=== PATIENT | male | born 1975 | race Caucasian/White ===

== ENCOUNTER 2016-02-28 08:58 | Inpatient (IN) | payer MEDICAID ==
[~2016-02-28] VITALS: Ht 162.6 cm; Wt 58.2 kg
[2016-02-28 10:24] LABS: BASOPHILS 0.3 % (0.0-2.0); HEMATOCRIT 35.7 % (42.0-54.0); IMMATURE GRANULOCYTES 0.2 % (0-5); LYMPHOCYTES 20.9 % (15-50); MCH 30.8 pg (26.0-34.0); MCHC 33.6 g/dL (31.0-37.0); MCV 91.8 fL (80.0-100.0); MONOCYTES 5.4 % (2-11); NEUTROPHILS 72.2 % (40-80); RBC 3.89 10x6/uL (4.20-6.10); RDW 12.3 % (11.5-14.5); WBC 8.7 10x3/uL (4.8-10.8)
[2016-02-28 10:26] LABS: PLATELET COUNT 351 10x3/uL (130-400)
[2016-02-28 10:36] LABS: ALBUMIN 3.1 g/dL (3.4-5.0); ALKALINE PHOSPHATASE 167 U/L (46-116); CALCIUM 9.7 mg/dL (8.5-10.1); CARBON DIOXIDE 25.5 mmol/L (21.0-32.0); CHLORIDE - SERUM 95 mmol/L (98-107); CREATININE - SERUM 1.1 mg/dL (0.6-1.3); POTASSIUM - SERUM 4.5 mmol/L (3.5-5.1); PROTEIN - SERUM 8.5 g/dL (6.4-8.2); SODIUM 133 mmol/L (136-145); UREA NITROGEN 9 mg/dL (7-18); eGFR NON AFRICAN AMERICAN 78 mL/min (90-120)
[2016-02-28 10:39] LABS: CALC OSMOLALITY 294 mosm/kg (275-300)
[2016-02-28 10:41] LABS: GLUCOSE 631 mg/dL (74-106)
[2016-02-28 10:54] LABS: ALT (SGPT) 13 U/L (10-68)
--- NOTE | 2016-02-28 14:00 | NUR ---
RECEIVED PATIENT TO ROOM 2229VIA WC FROM ED. A/O X3. NO C/O AT THIS TIME. LUNGS ARE CLEAR BUT DIMINISHED IN UPPER LOBES, REPORTS OCCASSIONAL DRY COUGH. SKIN IS INTACT WITHOUT REDNESS BUT FOR 2 SMALL AREAS ON RIGHT FOOT GREAT TOE AREA THERE ARE A COUPLE OF SCALY LOOKING AREAS WHICH THE PATIENT REPORTS BEING ABOUT 2 YEARS OLD AND ALMOST HEALED. IV TO LEFT HAND PATENT WITHOUT REDNESS AT INSERTION SITE. LEVAQUIN INFUSING AT THIS TIME.
[2016-02-28 14:08] VITALS: BP 110/61
--- NOTE | 2016-02-28 14:33 | NUR ---
Patient Name: DEEPIKA BAZAN Admission Status: ER Accout number: [id number] Admission Date: 02-28-2016 : 1975 Admission Diagnosis: Attending: CEDRIC Current LOS: 1 Anticipated DC Date: 03-01-2016 Planned Disposition: Home Primary Insurance: [place] PRIVATE OPTIONS FABI[place]N Discharge Planning Comments: CM MET WITH PATIENT REGARDING D/C NEEDS AND PLANS. PATIENT STATED HE LIVES AT [facility] [address] HERE IN [place]. PATIENT STATES HE IS INDEPENDENT AND HAS NO DME. PATIENTS STATED HE DID NOT HAVE A PCP BUT TOLD THE BEAM WARPER (ROMEO) IT WAS DR. FRASER IN [place]. PATIENT STATED HE USES [facility] ON [place] AND [facility] FOR HIS PHARMACY NEEDS. PATIENT HAS NEVER HAD HOME HEALTH. CM WILL CONTINUE TO FOLLOW PATIENT WITH D/C NEEDS AND PLANS. PCP DR. FRASER IN [place] ? [facility] ON [address] AND [facility]- [phone] [facility] IN [place] Mill Manager: Harriett Sharpe Is the patient Alert and Oriented? Yes 0 * How many steps to enter\exit or inside your home? 0 0 * PCP NONE 0 * Pharmacy [facility] ON [facility] AND [place] 0 * Preadmission Environment Homeless 0 * Other Environment [facility] [address] 0 * ADLs Independent 0 * Equipment None 0 * List name and contact numbers for known caregivers / representatives who currently or will assist patient after discharge: NONE PER PATIENT 0 * Additional services required to return to the preadmission environment? Yes 0 * Can the patient safely return to the preadmission environment? Yes 0 * Has this patient been hospitalized within the prior 30 days at any hospital? No 0 Grand Total: 0
[2016-02-28 14:42] VITALS: BP 110/61; Ht 162.6 cm; Wt 58.2 kg
--- NOTE | 2016-02-28 17:00 | NUR ---
FSBS 295. GIVEN 6 UNITS HUMALOG SUBQ PER SS. SUPPER SERVED IN ROOM.
--- NOTE | 2016-02-28 17:59 | NUR ---
ATE ALL OF SUPPER. NO C/O AT THIS TIME. DENIES NEEDS.
--- NOTE | 2016-02-28 21:00 | NUR ---
PT OBSERVED IN BED LYING SUPINE WITH EYES CLOSED AND RESPIRATIONS EVEN AND NON LABORED. DENIES NEEDS AT PRESENT TIME. SRX2 AND BED IN LOWEST POSITION AND LOCKED. CALL LIGHT IN REACH, WILL CONTINUE WITH PLAN OF CARE.
[2016-02-28 21:18] VITALS: BP 131/75
[2016-02-29 05:58] LABS: BASOPHILS 0.4 % (0.0-2.0); EOSINOPHILS 1.1 % (0-7); HEMATOCRIT 32.8 % (42.0-54.0); IMMATURE GRANULOCYTES 0.3 % (0-5); LYMPHOCYTES 21.6 % (15-50); MCH 30.3 pg (26.0-34.0); MCHC 33.5 g/dL (31.0-37.0); MCV 90.4 fL (80.0-100.0); MEAN PLATELET VOLUME 8.8 fL (7.4-10.4); NEUTROPHILS 65.6 % (40-80); PLATELET COUNT 351 10x3/uL (130-400); RBC 3.63 10x6/uL (4.20-6.10); RDW 12.1 % (11.5-14.5); WBC 7.2 10x3/uL (4.8-10.8)
[2016-02-29 06:54] LABS: ALBUMIN 2.5 g/dL (3.4-5.0); ALKALINE PHOSPHATASE 130 U/L (46-116); ALT (SGPT) 12 U/L (10-68); CALCIUM 8.3 mg/dL (8.5-10.1); CARBON DIOXIDE 23.7 mmol/L (21.0-32.0); CHLORIDE - SERUM 102 mmol/L (98-107); PROTEIN - SERUM 7.2 g/dL (6.4-8.2); SODIUM 136 mmol/L (136-145); UREA NITROGEN 7 mg/dL (7-18)
[2016-02-29 06:58] LABS: CALC OSMOLALITY 282 mosm/kg (275-300); CREATININE - SERUM 0.8 mg/dL (0.6-1.3); GLUCOSE 327 mg/dL (74-106); POTASSIUM - SERUM 3.6 mmol/L (3.5-5.1); eGFR NON AFRICAN AMERICAN > 90 mL/min (90-120)
[2016-02-29 08:15] VITALS: BP 110/52
[2016-02-29 11:46] VITALS: BP 123/60
--- NOTE | 2016-02-29 15:17 | NUR ---
NUTRITION MONITORING & EVAL SPOKE WITH PT RE:DIABETIC DIET EDU. PT STATES HE HAS BEEN DIABETIC SINCE 2007. CHECKS HIS BLOOD SUGAR AT HOME AND WAS ABLE TO TELL ME APPROPRIATE #,S. DID NOT KNOW CARB SOURCES OR SERVING SIZES. DISCUSSED SOURCES, SERVING SIZES, CHOICES PER MEAL. ALSO TAUGHT LABEL READING. PT SOMEWHAT ATTENTIVE BUT HAD NO QUESTIONS. RD FOLLOWING
[2016-02-29 16:10] VITALS: BP 98/64
[2016-02-29 19:00] VITALS: BP 116/64
--- NOTE | 2016-02-29 20:50 | NUR ---
ASSESSMENT COMPLETED, NO ACUTE DISTRESS NOTED, DENIES PAIN OR NEEDS AT THIS TIME, SR'S UP X2, CL IN REACH, WILL MONITOR
--- NOTE | 2016-02-29 21:40 | NUR ---
10 UNITS INSULIN GIVEN PER SLIDING SCALE FOR BS OF 300 ALONG WITH ROUTINE MEDS, RAY WELL, DENIES FURTHER NEEDS, CL IN REACH
[2016-03-01] VITALS (12 sets, daily range): BP systolic 74–131; BP diastolic 53–80
--- NOTE | 2016-03-01 01:40 | NUR ---
RESP THERAPY IN ROOM ADMINISTERING TX, PT RAY WELL, DENIES NEEDS, CL IN REACH
--- NOTE | 2016-03-01 03:40 | NUR ---
RESTING WITH EYES CLOSED, RESP WITH EASE, NO DISTRESS NOTED, SR'S UP X2, CL IN REACH
--- NOTE | 2016-03-01 06:23 | NUR ---
12 UNITS INSULIN GIVEN PER SLIDING SCALE FOR BS OF 347 ALONG WITH ROUTINE MEDS, RAY WELL, CL IN REACH
--- NOTE | 2016-03-01 07:00 | NUR ---
PATIENT IS AWAKE, ALERT AND ORIENTED X'S 4. RESPIRATIONS ARE EVEN AND UNLABORED ON ROOM AIR. PATIENT DENIES NEEDS AT THIS TIME. BED IN LOWEST POSITION, CALL LIGHT IN REACH. BED RAILS UP X'S 2.
[2016-03-01 07:10] LABS: BASOPHILS 0.4 % (0.0-2.0); EOSINOPHILS 1.6 % (0-7); HEMATOCRIT 33.4 % (42.0-54.0); HEMOGLOBIN 11.2 g/dL (13.5-17.5); IMMATURE GRANULOCYTES 0.4 % (0-5); LYMPHOCYTES 22.9 % (15-50); MCH 30.4 pg (26.0-34.0); MCHC 33.5 g/dL (31.0-37.0); MCV 90.5 fL (80.0-100.0); MEAN PLATELET VOLUME 8.8 fL (7.4-10.4); MONOCYTES 8.1 % (2-11); NEUTROPHILS 66.6 % (40-80); PLATELET COUNT 345 10x3/uL (130-400); RBC 3.69 10x6/uL (4.20-6.10); RDW 12.2 % (11.5-14.5); WBC 6.7 10x3/uL (4.8-10.8)
[2016-03-01 07:30] LABS: ALBUMIN 2.6 g/dL (3.4-5.0); ALKALINE PHOSPHATASE 133 U/L (46-116); ALT (SGPT) 12 U/L (10-68); CALC OSMOLALITY 286 mosm/kg (275-300); CALCIUM 8.5 mg/dL (8.5-10.1); CARBON DIOXIDE 26.4 mmol/L (21.0-32.0); CHLORIDE - SERUM 101 mmol/L (98-107); CREATININE - SERUM 0.8 mg/dL (0.6-1.3); GLUCOSE 355 mg/dL (74-106); POTASSIUM - SERUM 4.3 mmol/L (3.5-5.1); PROTEIN - SERUM 6.8 g/dL (6.4-8.2); SODIUM 137 mmol/L (136-145); UREA NITROGEN 9 mg/dL (7-18); eGFR NON AFRICAN AMERICAN > 90 mL/min (90-120)
--- NOTE | 2016-03-01 10:57 | NUR ---
RESIDENT OFF THE FLOOR WITH IMAGING.
--- NOTE | 2016-03-01 10:57 | NUR ---
PT BACK TO ROOM. WINDOW AND DOOR INSTALLER REPORTED THE PT DID VOMIT AFTER RECIEVEING THE CONTRAST DYE. PT REPORTS FEELING BETTER AND DENIES ANY NAUSEA AT THIS TIME.
--- NOTE | 2016-03-01 13:55 | NUR ---
PT UP TO SHOWER, AMBULATING WITHOUT ASSITANCE.
--- NOTE | 2016-03-01 16:18 | NUR ---
PT RESTING QUIETLY, BREATHING EVEN AND UNLABORED, NO S/S DISTRESS. CALL LIGHT IN REACH.
--- NOTE | 2016-03-01 16:43 | NUR ---
pt called nurse to room, vomitting in bathroom. PRN nausea meds were administered via left hand. will continue to monitor.
--- NOTE | 2016-03-01 17:29 | NUR ---
PT SITTING UP IN BED EATING DINNER. REPORTS THAT HE IS "KEEPING IT DOWN." HE IS C/O A HEADACHE AND A LOP OF 3/10, HOWEVER HE REFUSES ANY PAIN REMEDY. STATING," i DON'T LIKE TO TAKE A LOT OF MEDICINE." DENIES ANY NEEDS OTHERWISE, CALL LIGHT IN REACH, BED IN LOWEST POSITION. PT INSTRUCTED TO CALL IF ANY NEEDS ARISE.
--- NOTE | 2016-03-01 22:00 | NUR ---
PT C/O NAUSEA. CALLED PHYSICIAN TO CHANGE NAUSEA MEDICINE FROM Q6HPRN TO Q4HPRN. GAVE ZOFRAN 4 MG IV PUSH. COMPLETE ASSESSMENT PER FLOW-SHEET. WILL CONTINUE TO MONITOR.
[2016-03-02] VITALS: BP 117/81
[2016-03-02 04:00] VITALS: BP 134/85
[2016-03-02 06:08] LABS: ALBUMIN 2.6 g/dL (3.4-5.0); ALKALINE PHOSPHATASE 122 U/L (46-116); ALT (SGPT) 12 U/L (10-68); CALC OSMOLALITY 280 mosm/kg (275-300); CALCIUM 8.7 mg/dL (8.5-10.1); CARBON DIOXIDE 27.9 mmol/L (21.0-32.0); CHLORIDE - SERUM 100 mmol/L (98-107); CREATININE - SERUM 0.7 mg/dL (0.6-1.3); POTASSIUM - SERUM 3.7 mmol/L (3.5-5.1); PROTEIN - SERUM 7.4 g/dL (6.4-8.2); SODIUM 136 mmol/L (136-145); UREA NITROGEN 11 mg/dL (7-18); eGFR NON AFRICAN AMERICAN > 90 mL/min (90-120)
[2016-03-02 06:14] LABS: GLUCOSE 273 mg/dL (74-106)
[2016-03-02 06:22] LABS: BASOPHILS 0.3 % (0.0-2.0); EOSINOPHILS 3.5 % (0-7); HEMATOCRIT 34.2 % (42.0-54.0); HEMOGLOBIN 11.6 g/dL (13.5-17.5); IMMATURE GRANULOCYTES 0.3 % (0-5); LYMPHOCYTES 28.3 % (15-50); MCH 30.8 pg (26.0-34.0); MCHC 33.9 g/dL (31.0-37.0); MCV 90.7 fL (80.0-100.0); MEAN PLATELET VOLUME 8.8 fL (7.4-10.4); NEUTROPHILS 59.6 % (40-80); PLATELET COUNT 338 10x3/uL (130-400); RBC 3.77 10x6/uL (4.20-6.10); RDW 12.4 % (11.5-14.5); WBC 7.1 10x3/uL (4.8-10.8)
--- NOTE | 2016-03-02 07:20 | NUR ---
PATIENT AWAKE, ALERT AND ORIENTED X'S 4. PATIENT LAYING IN BED ON HIS LEFT SIDE. NO SIGNS OF DISTRESS NOTED. BED IN LOWEST POSITION, CALL LIGHT IN REACH. BED RIALS UP X'S 2. PATIENT DENIES PAIN AT THIS TIME.
--- NOTE | 2016-03-02 08:01 | NUR ---
PT RESTING QUIETLY, DENIES ANY NEEDS AT THIS TIME. CALL LIGHT IN REACH, PT VERBALIZES THAT HE WILL CALL IF NEED ANYTHING.
--- NOTE | 2016-03-02 09:55 | NUR ---
PT RESTING QUIETLY, DENIES ANY NAUSEA OR PAIN AT THIS TIME. TOLERATED NEW PO ANTIBIOTIC WELL. CALL LIGHT IN REACH, BED IN LOWEST POSITION.
--- NOTE | 2016-03-02 12:02 | NUR ---
RESTING QUIETLY, WATCHING TV. DENIES ANY NEEDS AT THIS TIME. CALL LIGHT IN REACH. WILL CALL IF NEED ANYTHING.
[2016-03-02 12:20] VITALS: BP 102/72
--- NOTE | 2016-03-02 13:50 | NUR ---
PT SITTING UP IN BED WATCHING TV, DENIES ANY NEEDS AT THIS TIME. CALL LIGHT IN REACH.
[2016-03-02 15:51] VITALS: BP 95/61
--- NOTE | 2016-03-02 17:16 | NUR ---
PATIENT AWAKE, ALERT AND ORIENTED X'S 4. RESPIRATIONS EVEN AND UNLABORED ON ROOM AIR. PATIENT SITTING UP ON THE SIDE OF THE BED. PATIENT DENIES NEEDS AT THIS TIME. BED IN LOWEST POSITION, CALL LIGHT IN REACH. BED RAILS UP X'S 2. PATENT DENIES PAIN.
[2016-03-02 19:00] VITALS: BP 122/74
[2016-03-03] VITALS: BP 110/71
--- NOTE | 2016-03-03 03:36 | NUR ---
PT IS ASLEEP WITH THE ROOM DARKENED. RESPIRATIONS ARE EASY AND THERE IS NO DISTRESS NOTED.THE BED IS LOW, RAILS UP X'S 2 WITH THE CALL LIGHT AT HAND
[2016-03-03 04:00] VITALS: BP 119/78
[2016-03-03 06:57] LABS: BASOPHILS 0.4 % (0.0-2.0); HEMATOCRIT 37.1 % (42.0-54.0); HEMOGLOBIN 12.7 g/dL (13.5-17.5); IMMATURE GRANULOCYTES 0.8 % (0-5); LYMPHOCYTES 30.9 % (15-50); MCHC 34.2 g/dL (31.0-37.0); MCV 90.5 fL (80.0-100.0); MEAN PLATELET VOLUME 8.5 fL (7.4-10.4); MONOCYTES 7.6 % (2-11); NEUTROPHILS 56.3 % (40-80); PLATELET COUNT 345 10x3/uL (130-400); RDW 12.4 % (11.5-14.5); WBC 7.5 10x3/uL (4.8-10.8)
--- NOTE | 2016-03-03 07:00 | NUR ---
PT REC'D FROM RADHA MONTES. PT RESTING IN BED WITH IN BED ALSO. AAOX4. PT IS TALKATIVE THIS MORNING. PT HAS PERSISTENT COUGH THAT HE STATES HE'S HAD FOR YEARS, AND COUGHS NO SPUTUM UP. WONDERING WHEN HE WILL GO HOME. I STATED THAT I HAD NOT SEEN THE DOCTOR SO I DID NOT HAVE ANY DC ORDERS. BED LOW, CALL LIGHT IN REACH, CPOC.
--- NOTE | 2016-03-03 07:00 | NUR ---
PT REC'D FROM RADHA MONTES. RADHA MONTES, IN ROOM ADMINISTERING MORNING INSULIN PER SS FOR FSBS OF 258. PT AAOX4. NO COMPLAINTS OF PAIN, BED LOW, CALL LIGHT IN REACH, WILL CPOC.
[2016-03-03 07:16] LABS: ALBUMIN 2.8 g/dL (3.4-5.0); ALKALINE PHOSPHATASE 127 U/L (46-116); ALT (SGPT) 12 U/L (10-68); CALC OSMOLALITY 280 mosm/kg (275-300); CALCIUM 8.9 mg/dL (8.5-10.1); CARBON DIOXIDE 28.1 mmol/L (21.0-32.0); CHLORIDE - SERUM 100 mmol/L (98-107); CREATININE - SERUM 0.8 mg/dL (0.6-1.3); GLUCOSE 258 mg/dL (74-106); PROTEIN - SERUM 7.8 g/dL (6.4-8.2); SODIUM 136 mmol/L (136-145); UREA NITROGEN 13 mg/dL (7-18); eGFR NON AFRICAN AMERICAN > 90 mL/min (90-120)
[2016-03-03 07:18] LABS: POTASSIUM - SERUM 4.5 mmol/L (3.5-5.1)
[2016-03-03 08:10] VITALS: BP 123/72
--- NOTE | 2016-03-03 09:45 | NUR ---
MORNING MEDS PASSED AT THIS TIME. PT SITTING UP IN BED WATCHING TV. LUNG SOUNDS CLEAR AND EQUAL BILATERALLY. NO COMPLAINTS OF PAIN. BED LOW, CALL LIGHT IN REACH, DENIES NEEDS.
--- NOTE | 2016-03-03 10:51 | NUR ---
PRN ZOFRAN ADMINISTERED PER PT COMPLAINTS OF N/V AFTER RETURNING FROM ULTRASOUND. WILL REASSESS.
[2016-03-03 12:00] VITALS: BP 127/85
--- NOTE | 2016-03-03 12:18 | NUR ---
AWAKE AND ALERT. SITTING UP IN BED. DENIES NEEDS. LUNGS ARE CLEAR THROUGHOUT BUT DIMINISHED IN LOWER LOBES BILATERALLY. REPORTS OCCASSIONALLY PRODUCTIVE COUGH WITH CLEAR SPUTUM .
[2016-03-03] MEDS ORDERED: LEVAQUIN750 MG PO (13:08)
[2016-03-03 15:37] VITALS: BP 105/72
--- NOTE | 2016-03-03 17:13 | NUR ---
DC INSTRUCTION DISCUSSED WITH PT AND DC PAPERS SIGNED AT THIS TIME. IV TO LT HAND DC'D WITH CATHETER INTACT. DRESSING APPLIED. PT STATED HE WOULD HAVE TO CATCH THE BUS AND STAY OUTSIDE THE HALF-WAY TONIGHT. ASKED PT IF THERE WAS ANYWHERE ELSE HE COULD GO, BUT HE STATED THERE WASN'T, BUT THAT WAS OKAY. ESCORTED OUT VIA WC BY STAFF.
[2016-03-07 11:17] LABS: ANGIOTENSIN CONVERTING ENZYME 39 U/L (14-82)
[2016-03-09 17:12] LABS: FUNGAL - ASP FLAVUS Negative (Neg:<1:1); FUNGAL - ASP NIGER Negative (Neg:<1:1); FUNGAL - ASPER FUMIGATUS Negative (Neg:<1:1); FUNGAL - COCCIDIOIDES Negative (Neg:<1:1)
--- NOTE | 2016-04-30 12:39 | DS ---
PATIENT:DEEPIKA BAZAN :[birth year] MEDICAL RECORD: [id number] DISCHARGE SUMMARY ADMISSION DATE: 02/28/16 DISCHARGE DATE: 03/03/16 ADMISSION DATE: 02/28/2016 DISCHARGE DATE: 03/03/2016 DIAGNOSES: 1. Pneumonia. 2. Chronic obstructive pulmonary disease exacerbation. 3. Ajuwl-cc-zgavrnz sinusitis. 4. Anemia due to lactic acidosis. 5. Acute cough. 6. Gastroesophageal reflux disease. 7. Diabetes mellitus type 2. CONSULTS: Dr. Schmidt. DIAGNOSTIC STUDIES OR TESTS: 1. Portable chest, which shows a persistent right upper lobe pneumonia. 2. Bilateral lower extremity venous ultrasound, which showed no evidence of DVT. 3. A CT of the chest, which shows right upper lobe pneumonia. There is also a 1 cm right thyroid bruit lobe nodule. There are some granulomatosis calcifications in the mediastinum and hilar lymph nodes and a small hiatal hernia. HOSPITAL COURSE: This is a 40-year-old patient, who was admitted with shortness of breath, acute cough along with noted right upper lobe pneumonia per CT and chest x-ray. The patient was admitted to the inpatient setting, started on some IV hydration and IV antibiotics with Levaquin and Rocephin to cover pseudomonal and Gram-negative rods. She was started on aggressive pulmonary toilet with mucolytics and bronchodilators. The patient underwent a bedside swallow eval for possible aspiration. It revealed a normal pharyngeal study. The patient did have poor dentition, essentially homeless [place] It was recommended that the patient receive mechanical soft diet with thin liquids as tolerated. The patient's clinical condition improved. Antibiotic therapy was deescalated. The patient was thought to be stable for discharge home to follow up with Dr. Rivera in the proceeding weeks. TRANSINT:[id number] Voice Confirmation ID: [id number] DOCUMENT ID: [id number] Dictated By: RADHA HANCOCK I have interviewed/examined the above patient and agree with these documented findings. at 0904 at 1238 CC: [id number] DICTATION DATE: 04/25/16 0831 COUNTERSINKER: 04/25/16 2215 DIS IN 03/03/16 [id number] [place] [address]
== END 2016-03-03 17:18 | disposition home or self-care (01) | DRG 190 ==
LOC: D.ER 08:58 → D.MS 11:59
PROVIDERS: Emergency Medicine; Internal Medicine Pulmonary Disease; ADMIT Family Medicine Adult Medicine
DX: J44.0 Chronic obstructive pulmonary disease with (acute) lower respiratory infection (principal); J18.9 Pneumonia, unspecified organism; E87.2 Acidosis; J44.1 Chronic obstructive pulmonary disease with (acute) exacerbation; D64.9 Anemia, unspecified; K21.0 Gastro-esophageal reflux disease with esophagitis; G89.29 Other chronic pain; F32.9 Major depressive disorder, single episode, unspecified; J32.9 Chronic sinusitis, unspecified

== ENCOUNTER 2016-04-05 09:30 | Emergency (ER) | payer MEDICAID ==
[2016-02-28 14:42] VITALS: BMI 22.0
[~2016-04-05 09:30] MED LIST: LEVAQUIN750 MG PO
== END 2016-04-05 12:12 | disposition home or self-care (01) ==
LOC: D.ER 09:30
DX: S00.01XA Abrasion of scalp, initial encounter (principal); W10.9XXA Fall (on) (from) unspecified stairs and steps, initial encounter; Y93.89 Activity, other specified; Y92.019 Unspecified place in single-family (private) house as the place of occurrence of the external cause; S16.1XXA Strain of muscle, fascia and tendon at neck level, initial encounter; F32.9 Major depressive disorder, single episode, unspecified

== ENCOUNTER 2016-04-08 16:56 | Emergency (ER) | payer MEDICAID ==
[2016-02-28 14:42] VITALS: BMI 22.0
[2016-04-08 17:42] LABS: BASOPHILS 0.5 % (0.0-2.0); EOSINOPHILS 2.8 % (0-7); HEMATOCRIT 34.1 % (42.0-54.0); HEMOGLOBIN 11.5 g/dL (13.5-17.5); IMMATURE GRANULOCYTES 0.3 % (0-5); LYMPHOCYTES 26.9 % (15-50); MCH 30.5 pg (26.0-34.0); MCHC 33.7 g/dL (31.0-37.0); MCV 90.5 fL (80.0-100.0); MEAN PLATELET VOLUME 8.7 fL (7.4-10.4); MONOCYTES 7.3 % (2-11); NEUTROPHILS 62.2 % (40-80); RBC 3.77 10x6/uL (4.20-6.10); WBC 6.4 10x3/uL (4.8-10.8)
[2016-04-08 17:43] LABS: PLATELET COUNT 245 10x3/uL (130-400)
[2016-04-08 18:05] LABS: ALBUMIN 3.1 g/dL (3.4-5.0); ALKALINE PHOSPHATASE 129 U/L (46-116); ALT (SGPT) 23 U/L (10-68); CALC OSMOLALITY 294 mosm/kg (275-300); CALCIUM 8.7 mg/dL (8.5-10.1); CARBON DIOXIDE 29.4 mmol/L (21.0-32.0); CHLORIDE - SERUM 102 mmol/L (98-107); CREATININE - SERUM 0.9 mg/dL (0.6-1.3); POTASSIUM - SERUM 4.3 mmol/L (3.5-5.1); PROTEIN - SERUM 6.9 g/dL (6.4-8.2); SODIUM 140 mmol/L (136-145); UREA NITROGEN 11 mg/dL (7-18); eGFR NON AFRICAN AMERICAN > 90 mL/min (90-120)
[2016-04-08 18:06] LABS: GLUCOSE 398 mg/dL (74-106)
== END 2016-04-08 21:24 | disposition home or self-care (01) ==
LOC: D.ER 16:56
PROVIDERS: Physician Assistant Medical
DX: E86.0 Dehydration (principal); K52.9 Noninfective gastroenteritis and colitis, unspecified; F32.9 Major depressive disorder, single episode, unspecified

== ENCOUNTER 2016-08-08 18:26 | Inpatient (IN) | payer MEDICAID ==
[~2016-08-08] VITALS: Ht 162.6 cm; Wt 57.7 kg
[2016-08-08 19:09] LABS: BASOPHILS 0.2 % (0-2); EOSINOPHILS 0.2 % (0-7); HEMATOCRIT 35.2 % (42.0-54.0); HEMOGLOBIN 11.6 g/dL (13.5-17.5); IMMATURE GRANULOCYTES 0.2 % (0-5); LYMPHOCYTES 10.2 % (15-50); MCH 30.9 pg (26.0-34.0); MCV 93.9 fL (80.0-100.0); MEAN PLATELET VOLUME 8.7 fL (7.4-10.4); MONOCYTES 5.9 % (2-11); NEUTROPHILS 83.3 % (40-80); RBC 3.75 10x6/uL (4.20-6.10); RDW 12.6 % (11.5-14.5); WBC 10.7 10x3/uL (4.8-10.8)
[2016-08-08 19:10] LABS: PLATELET COUNT 185 10x3/uL (130-400)
[2016-08-08 19:30] LABS: ALBUMIN 3.1 g/dL (3.4-5.0); ALKALINE PHOSPHATASE 76 U/L (46-116); ALT (SGPT) 21 U/L (10-68); BILIRUBIN - TOTAL 0.29 mg/dL (0.2-1.3); CALC OSMOLALITY 279 mosm/kg (275-300); CALCIUM 8.1 mg/dL (8.5-10.1); CARBON DIOXIDE 23.5 mmol/L (21.0-32.0); CHLORIDE - SERUM 105 mmol/L (98-107); CREATININE - SERUM 0.9 mg/dL (0.6-1.3); GLUCOSE 158 mg/dL (74-106); PROTEIN - SERUM 6.7 g/dL (6.4-8.2); SODIUM 139 mmol/L (136-145); UREA NITROGEN 9 mg/dL (7-18); eGFR NON AFRICAN AMERICAN > 90 mL/min (90-120)
[2016-08-08 20:42] LABS: CREATINE KINASE 41 UL (21-232); MAGNESIUM - SERUM 1.4 mg/dL (1.8-2.4)
[2016-08-08 20:48] LABS: TROPONIN-I < 0.017 ng/mL (0.000-0.060)
[2016-08-09 01:05] LABS: APPEARANCE CLEAR (CLEAR); BILIRUBIN NEGATIVE (NEGATIVE); COLOR YELLOW (YELLOW); GLUCOSE 100 mg/dL (NEGATIVE); KETONE NEGATIVE (NEGATIVE); LEUKOCYTE ESTERASE NEGATIVE (NEGATIVE); NITRITE NEGATIVE (NEGATIVE); PROTEIN NEGATIVE (NEGATIVE); SPECIFIC GRAVITY 1.015 (1.005-1.020); UROBILINOGEN NORMAL (NORMAL)
--- NOTE | 2016-08-09 03:00 | NUR ---
PT ARRIVED ON UNIT VIA STRETCHER ESCORTED BY ER NURSE. POSITIONED IN BED FOR COMFORT. IV FLUIDS STARTED PER ORDER. LEVAQUIN GIVEN IN THE ER. GAVE WATER AND SODAS FOR REFRESHMENTS.
[2016-08-09 03:06] VITALS: BP 118/71; Ht 162.6 cm; Wt 57.7 kg
[2016-08-09] MEDS ORDERED: CELEXA10 MG (03:27)
--- NOTE | 2016-08-09 03:43 | NUR ---
ADMISSION ASSESSMENT AND HISTORY COMPLETE. PT UNSURE OF HIS HOME MEDICATIONS, AND WILL CALL HOME FOR LIST IN THE AM.
[2016-08-09 07:40] VITALS: BP 110/71
--- NOTE | 2016-08-09 07:45 | NUR ---
AWAKE AND ALERT AT THIS TIME. PROVIDED PT WITH ORANGE JUICE AT THIS TIME. ASSESSMENT PERFORMED PER FLOWSHEET. AMBULATES INDEPENDENTLY. DENIES PAIN AT THIS TIME. CALL LIGHT IN REACH, WILL CONTINUE WITH PLAN OF CARE.
--- NOTE | 2016-08-09 08:41 | NUR ---
* Is the patient Alert and Oriented? Yes 0 * How many steps to enter\exit or inside your home? 5 0 * PCP [facility] 0 * Pharmacy [facility] 0 * Preadmission Environment Home with Family 0 * ADLs Independent 0 * Equipment None 0 * List name and contact numbers for known caregivers / representatives who currently or will assist patient after discharge: [phone] * Community resources currently utilized None 0 * Additional services required to return to the preadmission environment? No 0 * Can the patient safely return to the preadmission environment? Yes 0 * Has this patient been hospitalized within the prior 30 days at any hospital? No 0 Grand Total: 0 Patient Name: DEEPIKA BAZAN Admission Status: ER Accout number: [id number] Admission Date: 08-09-2016 : 1975 Admission Diagnosis: Attending: VELIA Current LOS: 1 Anticipated DC Date: Planned Disposition: Home Primary Insurance: [place] PRIVATE OPTIONS [place]N Discharge Planning Comments: CM met with patient to assess discharge planning needs. Patient states that he lives with friends. He plans to return there via BUS. He states that his emergency contact is his sister Talia. Patient states that he does have a glucometer at home. Patient denies any HH needs at this time. CM will continue to follow and assist as needed. PCP: [facility]: [facility] [address] (sister) [phone] Grease Maker Head: Cary Fagan
--- NOTE | 2016-08-09 09:45 | NUR ---
PT IN SHOWER AT THIS TIME. LINENS CHANGED. CALL LIGHT IN REACH, DENIES NEEDS AT THIS TIME. WILL CONTINUE WITH PLAN OF CARE.
--- NOTE | 2016-08-09 12:01 | NUR ---
SCHEDULED IV FLUID HUNG AT THIS TIME. IV TO LEFT HAND PATENT WITH NO S/S OF INFILTRATION PRESENT. PT DENIES FURTHER NEEDS. CALL LIGHT IN REACH, WILL CONTINUE WITH PLAN OF CARE.
[2016-08-09 12:24] VITALS: BP 104/63
[2016-08-09 15:41] VITALS: BP 104/64
[2016-08-09 19:00] VITALS: BP 139/76
--- NOTE | 2016-08-09 19:00 | NUR ---
BEDSIDE REPORT RECEIVED AND CARE OF PT ASSUMED. PT AMBULATING IN ROOM AT THIS TIME. IV IN LEFT HAND PATENT WITH LR INFUSING AT 125 ML / HR. WILL MONITOR FOR NEEDS.
--- NOTE | 2016-08-09 21:00 | NUR ---
HS SNACK GIVEN. WILL CONTINUE TO MONITOR FOR NEEDS.
[2016-08-10] VITALS: BP 130/74
--- NOTE | 2016-08-10 03:00 | NUR ---
PT C/O HAS HAD SEVERAL LOOSE BM'S TONIGHT. WILL MONITOR CLOSELY AND REPORT TO MD IN AM.
--- NOTE | 2016-08-10 03:28 | NUR ---
GAVE PT WIPES, POWDER AND KATIE'S PASTE FOR PREVENTION OF REDNESS / SORENESS IN [place] AREA FROM LOOSE STOOLS.
[2016-08-10 04:00] VITALS: BP 117/70
[2016-08-10 04:49] LABS: BASOPHILS 0.1 % (0-2); EOSINOPHILS 1.2 % (0-7); HEMATOCRIT 33.5 % (42.0-54.0); HEMOGLOBIN 11.2 g/dL (13.5-17.5); IMMATURE GRANULOCYTES 0.1 % (0-5); LYMPHOCYTES 25.6 % (15-50); MCH 30.9 pg (26.0-34.0); MCHC 33.4 g/dL (31.0-37.0); MCV 92.5 fL (80.0-100.0); MEAN PLATELET VOLUME 8.6 fL (7.4-10.4); MONOCYTES 12.5 % (2-11); NEUTROPHILS 60.5 % (40-80); PLATELET COUNT 184 10x3/uL (130-400); RBC 3.62 10x6/uL (4.20-6.10); RDW 12.2 % (11.5-14.5)
[2016-08-10 04:57] LABS: WBC 6.8 10x3/uL (4.8-10.8)
[2016-08-10 05:14] LABS: ALBUMIN 2.9 g/dL (3.4-5.0); ALKALINE PHOSPHATASE 75 U/L (46-116); ALT (SGPT) 16 U/L (10-68); CALCIUM 8.9 mg/dL (8.5-10.1); CHLORIDE - SERUM 102 mmol/L (98-107); CREATININE - SERUM 0.7 mg/dL (0.6-1.3); POTASSIUM - SERUM 4.1 mmol/L (3.5-5.1); PROTEIN - SERUM 6.7 g/dL (6.4-8.2); SODIUM 138 mmol/L (136-145); UREA NITROGEN 8 mg/dL (7-18); eGFR NON AFRICAN AMERICAN > 90 mL/min (90-120)
[2016-08-10 05:15] LABS: CALC OSMOLALITY 282 mosm/kg (275-300); CARBON DIOXIDE 29.5 mmol/L (21.0-32.0); GLUCOSE 263 mg/dL (74-106)
[2016-08-10] MEDS ORDERED: LEVAQUIN750 MG PO (07:21)
[2016-08-10 07:36] VITALS: BP 100/66
[2016-08-10] MEDS ORDERED: CELEXA10 MG PO (08:46)
--- NOTE | 2016-08-10 09:42 | NUR ---
PATIENT IS DISCHARGING HOME TODAY-STATED HE HAS NO WAY HOME AND COULD WALK. CM STATED WE WOULD GET HIM A CAB RIDE TO HIS HOME AT DISCHARGE. PATIENT DENIED HOME HEALTH NEEDS. CM CALLED [employer] AND QUOTE WAS 6.50 FOR HIS RIDE HOME.
--- NOTE | 2016-08-10 09:55 | NUR ---
IV TO LEFT HAND D/C WITH CATH TIP INTACT.
--- NOTE | 2016-08-10 10:12 | NUR ---
CM REASSESSMENT NOTE: PATIENT CALLED CM TO ROOM AND HE HAD REACHED A FRIEND BY TELEPHONE AND HE WILL BE ABLE TO PICK PATIENT UP AT DISCHARGE. NO CAB NEEDED PER PATIENT.
--- NOTE | 2016-08-10 11:50 | NUR ---
D/C HOME AT THIS TIME WITH FRIEND.
== END 2016-08-10 11:55 | disposition home or self-care (01) | DRG 195 ==
LOC: D.ER 18:26 → D.MS 08-09 02:08
PROVIDERS: Emergency Medicine; ADMIT Family Medicine
DX: J18.9 Pneumonia, unspecified organism (principal); E11.9 Type 2 diabetes mellitus without complications; D64.9 Anemia, unspecified; E83.42 Hypomagnesemia; R00.0 Tachycardia, unspecified; Z87.891 Personal history of nicotine dependence

== ENCOUNTER 2016-09-04 03:56 | Emergency (ER) | payer MEDICAID ==
[2016-08-09 03:06] VITALS: BMI 21.8
[~2016-09-04 03:56] MED LIST changes: +CELEXA10 MG; +CELEXA10 MG PO
[2016-09-04 04:35] LABS: MAGNESIUM - SERUM 1.7 mg/dL (1.8-2.4)
[2016-09-04 04:37] LABS: GLUCOSE 54 mg/dL (74-106)
[2016-09-04 07:15] LABS: BASOPHILS 0.1 % (0-2); EOSINOPHILS 1.8 % (0-7); HEMATOCRIT 32.6 % (42.0-54.0); IMMATURE GRANULOCYTES 0.1 % (0-5); LYMPHOCYTES 29.6 % (15-50); MCH 31.3 pg (26.0-34.0); MCHC 33.7 g/dL (31.0-37.0); MCV 92.6 fL (80.0-100.0); MEAN PLATELET VOLUME 9.3 fL (7.4-10.4); MONOCYTES 7.3 % (2-11); NEUTROPHILS 61.1 % (40-80); RBC 3.52 10x6/uL (4.20-6.10); RDW 12.4 % (11.5-14.5); WBC 7.1 10x3/uL (4.8-10.8)
[2016-09-04 07:27] LABS: PLATELET COUNT 289 10x3/uL (130-400)
[2016-09-04 07:33] LABS: ALKALINE PHOSPHATASE 70 U/L (46-116); ALT (SGPT) 12 U/L (10-68); BILIRUBIN - TOTAL 0.25 mg/dL (0.2-1.3); CALC OSMOLALITY 284 mosm/kg (275-300); CALCIUM 8.9 mg/dL (8.5-10.1); CARBON DIOXIDE 26.6 mmol/L (21.0-32.0); CHLORIDE - SERUM 108 mmol/L (98-107); CREATININE - SERUM 0.8 mg/dL (0.6-1.3); POTASSIUM - SERUM 3.4 mmol/L (3.5-5.1); PROTEIN - SERUM 7.6 g/dL (6.4-8.2); SODIUM 145 mmol/L (136-145); UREA NITROGEN 6 mg/dL (7-18); eGFR NON AFRICAN AMERICAN > 90 mL/min (90-120)
== END 2016-09-04 09:27 | disposition home or self-care (01) ==
LOC: D.ER 03:56
PROVIDERS: Emergency Medicine
DX: E11.649 Type 2 diabetes mellitus with hypoglycemia without coma (principal); Z79.4 Long term (current) use of insulin

== ENCOUNTER 2016-10-23 15:48 | Emergency (ER) | payer MEDICAID ==
[2016-08-09 03:06] VITALS: BMI 21.8
== END 2016-10-23 18:48 | disposition home or self-care (01) ==
LOC: D.ER 15:48
DX: M25.511 Pain in right shoulder (principal)

== ENCOUNTER 2017-01-24 15:26 | Emergency (ER) | payer MEDICAID ==
[2016-08-09 03:06] VITALS: BMI 21.8
== END 2017-01-24 16:45 | disposition home or self-care (01) ==
LOC: D.ER 15:26
DX: M54.5 Low back pain (principal)

== ENCOUNTER 2017-02-23 22:28 | Emergency (ER) | payer MEDICAID ==
[2016-08-09 03:06] VITALS: BMI 21.8
[2017-02-23 22:51] LABS: APPEARANCE CLEAR (CLEAR); BILIRUBIN NEGATIVE (NEGATIVE); COLOR YELLOW (YELLOW); GLUCOSE 1000 mg/dL (NEGATIVE); KETONE NEGATIVE (NEGATIVE); NITRITE NEGATIVE (NEGATIVE); PROTEIN NEGATIVE (NEGATIVE); SPECIFIC GRAVITY 1.015 (1.005-1.020); UROBILINOGEN NORMAL (NORMAL)
[2017-02-23 22:53] LABS: EPITHELIAL CELLS 0-5 /hpf (0-5); RED CELLS - URINE 0-5 /hpf (0-5)
[2017-02-23 22:58] LABS: UDS - AMPHET NEGATIVE QUAL (NEGATIVE); UDS - BARB NEGATIVE QUAL (NEGATIVE); UDS - BENZO NEGATIVE QUAL (NEGATIVE); UDS - COCAINE NEGATIVE QUAL (NEGATIVE); UDS - OPIATE NEGATIVE QUAL (NEGATIVE); UDS - PCP NEGATIVE QUAL (NEGATIVE); UDS - THC NEGATIVE QUAL (NEGATIVE)
[2017-02-23 23:21] LABS: BASOPHILS 0.1 % (0-2); HEMOGLOBIN 11.4 g/dL (13.5-17.5); IMMATURE GRANULOCYTES 0.2 % (0-5); LYMPHOCYTES 26.7 % (15-50); MCH 31.1 pg (26.0-34.0); MCHC 34.5 g/dL (31.0-37.0); MCV 89.9 fL (80.0-100.0); MEAN PLATELET VOLUME 8.5 fL (7.4-10.4); MONOCYTES 10.2 % (2-11); NEUTROPHILS 61.8 % (40-80); PLATELET COUNT 319 10x3/uL (130-400); RBC 3.67 10x6/uL (4.20-6.10); RDW 12.5 % (11.5-14.5); WBC 8.8 10x3/uL (4.8-10.8)
[2017-02-23 23:38] LABS: ALBUMIN 3.4 g/dL (3.4-5.0); ALKALINE PHOSPHATASE 101 U/L (46-116); ALT (SGPT) 12 U/L (10-68); BILIRUBIN - TOTAL 0.36 mg/dL (0.2-1.3); CALC OSMOLALITY 283 mosm/kg (275-300); CALCIUM 9.7 mg/dL (8.5-10.1); CARBON DIOXIDE 28.1 mmol/L (21.0-32.0); CHLORIDE - SERUM 98 mmol/L (98-107); POTASSIUM - SERUM 4.1 mmol/L (3.5-5.1); PROTEIN - SERUM 8.6 g/dL (6.4-8.2); SODIUM 135 mmol/L (136-145); UREA NITROGEN 21 mg/dL (7-18); eGFR NON AFRICAN AMERICAN 87 mL/min (90-120)
[2017-02-23 23:42] LABS: GLUCOSE 296 mg/dL (74-106)
== END 2017-02-24 03:10 | disposition home or self-care (01) ==
LOC: D.ER 22:28
PROVIDERS: Emergency Medicine
DX: F41.9 Anxiety disorder, unspecified (principal); F33.9 Major depressive disorder, recurrent, unspecified

== ENCOUNTER 2017-03-03 23:38 | Emergency (ER) | payer MEDICAID ==
[2016-08-09 03:06] VITALS: BMI 21.8
[2017-03-04 00:07] LABS: APPEARANCE CLEAR (CLEAR); BILIRUBIN NEGATIVE (NEGATIVE); COLOR YELLOW (YELLOW); GLUCOSE NEGATIVE (NEGATIVE); KETONE NEGATIVE (NEGATIVE); NITRITE NEGATIVE (NEGATIVE); PROTEIN NEGATIVE (NEGATIVE); SPECIFIC GRAVITY 1.015 (1.005-1.020); UROBILINOGEN NORMAL (NORMAL)
[2017-03-04 00:09] LABS: BASOPHILS 0.5 % (0-2); EOSINOPHILS 1.7 % (0-7); HEMATOCRIT 32.8 % (42.0-54.0); HEMOGLOBIN 11.4 g/dL (13.5-17.5); IMMATURE GRANULOCYTES 0.5 % (0-5); LYMPHOCYTES 44.3 % (15-50); MCH 31.1 pg (26.0-34.0); MCHC 34.8 g/dL (31.0-37.0); MCV 89.6 fL (80.0-100.0); MEAN PLATELET VOLUME 8.2 fL (7.4-10.4); PLATELET COUNT 263 10x3/uL (130-400); RBC 3.66 10x6/uL (4.20-6.10); RDW 12.3 % (11.5-14.5)
[2017-03-04 00:23] LABS: ALBUMIN 3.3 g/dL (3.4-5.0); ALKALINE PHOSPHATASE 76 U/L (46-116); ALT (SGPT) 16 U/L (10-68); BILIRUBIN - TOTAL 0.21 mg/dL (0.2-1.3); CALC OSMOLALITY 280 mosm/kg (275-300); CALCIUM 8.8 mg/dL (8.5-10.1); CARBON DIOXIDE 29.5 mmol/L (21.0-32.0); CHLORIDE - SERUM 101 mmol/L (98-107); GLUCOSE 157 mg/dL (74-106); POTASSIUM - SERUM 3.7 mmol/L (3.5-5.1); PROTEIN - SERUM 7.9 g/dL (6.4-8.2); SODIUM 138 mmol/L (136-145); UREA NITROGEN 17 mg/dL (7-18); eGFR NON AFRICAN AMERICAN 87 mL/min (90-120)
[2017-03-04 00:35] LABS: UDS - AMPHET NEGATIVE QUAL (NEGATIVE); UDS - BARB NEGATIVE QUAL (NEGATIVE); UDS - BENZO NEGATIVE QUAL (NEGATIVE); UDS - COCAINE NEGATIVE QUAL (NEGATIVE); UDS - OPIATE NEGATIVE QUAL (NEGATIVE); UDS - PCP NEGATIVE QUAL (NEGATIVE); UDS - THC NEGATIVE QUAL (NEGATIVE)
== END 2017-03-04 13:29 | disposition short-term general hospital (02) ==
LOC: D.ER 23:38
PROVIDERS: Family Medicine
DX: F33.9 Major depressive disorder, recurrent, unspecified (principal); R45.851 Suicidal ideations; F17.200 Nicotine dependence, unspecified, uncomplicated

== ENCOUNTER 2017-03-23 13:44 | Emergency (ER) | payer MEDICAID ==
[2016-08-09 03:06] VITALS: BMI 21.8
== END 2017-03-23 15:22 | disposition home or self-care (01) ==
LOC: D.ER 13:44
DX: J20.9 Acute bronchitis, unspecified (principal); J06.9 Acute upper respiratory infection, unspecified; F17.200 Nicotine dependence, unspecified, uncomplicated

== ENCOUNTER 2017-04-04 13:56 | Emergency (ER) | payer MEDICAID ==
[2016-08-09 03:06] VITALS: BMI 21.8
== END 2017-04-04 19:09 | disposition home or self-care (01) ==
LOC: D.ER 13:56
DX: S63.601A Unspecified sprain of right thumb, initial encounter (principal); W06.XXXA Fall from bed, initial encounter; Y93.89 Activity, other specified; Y92.013 Bedroom of single-family (private) house as the place of occurrence of the external cause

== ENCOUNTER 2017-04-30 19:50 | Emergency (ER) | payer MEDICAID ==
[2016-08-09 03:06] VITALS: BMI 21.8
[2017-04-30 20:27] LABS: BASOPHILS 0.3 % (0-2); EOSINOPHILS 2.3 % (0-7); HEMATOCRIT 34.3 % (42.0-54.0); HEMOGLOBIN 11.9 g/dL (13.5-17.5); IMMATURE GRANULOCYTES 0.1 % (0-5); LYMPHOCYTES 40.6 % (15-50); MCH 31.2 pg (26.0-34.0); MCHC 34.7 g/dL (31.0-37.0); MCV 89.8 fL (80.0-100.0); MEAN PLATELET VOLUME 8.3 fL (7.4-10.4); MONOCYTES 6.5 % (2-11); NEUTROPHILS 50.2 % (40-80); RBC 3.82 10x6/uL (4.20-6.10); RDW 12.7 % (11.5-14.5); WBC 6.9 10x3/uL (4.8-10.8)
[2017-04-30 20:44] LABS: ALBUMIN 3.6 g/dL (3.4-5.0); ALKALINE PHOSPHATASE 73 U/L (46-116); ALT (SGPT) 20 U/L (10-68); BILIRUBIN - TOTAL 0.24 mg/dL (0.2-1.3); CALC OSMOLALITY 282 mosm/kg (275-300); CALCIUM 9.2 mg/dL (8.5-10.1); CARBON DIOXIDE 29.3 mmol/L (21.0-32.0); CHLORIDE - SERUM 98 mmol/L (98-107); POTASSIUM - SERUM 3.9 mmol/L (3.5-5.1); PROTEIN - SERUM 8.1 g/dL (6.4-8.2); SODIUM 137 mmol/L (136-145); UREA NITROGEN 17 mg/dL (7-18); eGFR NON AFRICAN AMERICAN 87 mL/min (90-120)
[2017-04-30 20:47] LABS: GLUCOSE 231 mg/dL (74-106)
[2017-04-30 20:47] LABS: APPEARANCE CLEAR (CLEAR); COLOR YELLOW (YELLOW)
[2017-04-30 20:48] LABS: BILIRUBIN NEGATIVE (NEGATIVE); GLUCOSE 100 mg/dL (NEGATIVE); KETONE NEGATIVE (NEGATIVE); NITRITE NEGATIVE (NEGATIVE); PROTEIN NEGATIVE (NEGATIVE); SPECIFIC GRAVITY 1.015 (1.005-1.020); UROBILINOGEN NORMAL (NORMAL)
[2017-04-30 20:49] LABS: PLATELET COUNT 205 10x3/uL (130-400)
[2017-04-30 22:03] LABS: UDS - AMPHET NEGATIVE QUAL (NEGATIVE); UDS - BARB NEGATIVE QUAL (NEGATIVE); UDS - BENZO NEGATIVE QUAL (NEGATIVE); UDS - COCAINE NEGATIVE QUAL (NEGATIVE); UDS - OPIATE NEGATIVE QUAL (NEGATIVE); UDS - PCP NEGATIVE QUAL (NEGATIVE); UDS - THC NEGATIVE QUAL (NEGATIVE)
== END 2017-05-01 00:33 ==
LOC: D.ER 19:50
PROVIDERS: Family Medicine; Physician Assistant Medical
DX: F41.9 Anxiety disorder, unspecified (principal); Z86.59 Personal history of other mental and behavioral disorders